=== PATIENT | female | born 1980 | race African-American/Black ===

== ENCOUNTER 2017-08-22 12:19 | Emergency (ER) ==
[2017-08-22 12:30] VITALS: BP 145/96; TEMP 99.6; BMI 36.0
[2017-08-22 13:11] LABS: BASOPHILS % (AUTO) 0.2 % (0.0-3.0); EOSINOPHILS % (AUTO) 0.5 % (0.0-7.0); HEMATOCRIT 34.3 % (37.0-47.0); HEMOGLOBIN 11.5 g/dl (12.0-16.0); IMMATURE GRANULOCYTE % (AUTO) 0.2 % (0.0-5.0); LYMPHOCYTES % (AUTO) 16.5 (10.0-50.0); MEAN CORPUSCULAR HEMOGLOBIN 28.3 pg (27.0-31.0); MEAN CORPUSCULAR HGB CONC 33.5 (31.8-35.4); MEAN CORPUSCULAR VOLUME 84.3 fl (81.0-99.0); MONOCYTES # (AUTO) 0.5 K/uL (0.4-2.0); MONOCYTES % (AUTO) 9.4 (0-10); NEUTROPHILS # (AUTO) 4.2 K/ul (2.0-6.9); NEUTROPHILS % (AUTO) 73.2; PLATELET COUNT 202 10^3/uL (140-440); RED BLOOD COUNT 4.07 10^6/ul (4.20-5.40); WHITE BLOOD COUNT 5.77 K/ul (4.6-10.2)
--- NOTE | 2017-08-22 13:31 | ED.PDOC ---
General ED Provider: Dr. ARA MARTINEZ Chief Complaint: Foot Pain/Injury Stated Complaint: R foot pain; worse this AM Time Seen by Physician: 12:45 Mode of Arrival: Wheelchair Information Source: Patient Exam Limitations: No limitations Primary Care [facility] Nursing and Triage Documentation Reviewed and Agree: Yes Review of Systems - Review Of Systems Constitutional: Reports: No symptoms Musculoskeletal: Reports: Other (F distal lateral foot pain) Skin: Reports: Change in color (Swelling and erythema R distal foot) All Other Systems: Reviewed and Negative Past Medical History - Past Medical History Previously Healthy: Yes Endocrine: Reports: None Cardiovascular: Reports: None Respiratory: Reports: None Hematological: Reports: None Gastrointestinal: Reports: None Genitourinary: Reports: None Neuro/Psych: Reports: None Musculoskeletal: Reports: None Cancer: Reports: None Last Menstrual Period: 08/19/17 - Surgical History General Surgical History: Reports: Unknown - Family History Family History: Reports: Unknown - Social History Smoking Status: Never smoker Hx Substance Use: No Alcohol Screening: None - Immunizations Tetanus Shot up to Date: (unknown) Physical Exam - Physical Exam Appearance: Well-appearing Pain Distress: Moderate (R foot) Neck: Supple Musculoskeletal: Normal strength, ROM intact Skin: Warm, Dry, Normal color (Except R distal lateral foot) Neurological: Sensation intact, Motor intact, Alert, Oriented Psychiatric: Affect appropriate, Mood appropriate Critical Care Note - Critical Care Note Total Time (mins): 15 Course - Course Hematology/Chemistry: 08/22/17 13:00 Orders, Labs, Meds: Lab Review 08/22/17 08/22/17 13:00 13:00 WBC 5.77 RBC 4.07 L Hgb 11.5 L Hct 34.3 L MCV 84.3 MCH 28.3 MCHC 33.5 RDW Coeff of Yudi 13.9 Plt Count 202 Immature Gran % (Auto) 0.2 Neut % (Auto) 73.2 Lymph % (Auto) 16.5 Day % (Auto) 9.4 Eos % (Auto) 0.5 Baso % (Auto) 0.2 Immature Gran # (Auto) 0.0 Neut # 4.2 Lymph # 1.0 Day # 0.5 Eos # 0.0 Baso # 0.0 Uric Acid 4.4 Orders Category Date Time Status CBC W/ AUTO DIFF Stat LAB 08/22/17 13:00 Completed URIC ACID Stat LAB 08/22/17 13:00 Completed FOOT, RIGHT 3 VIEWS Stat RADS 08/22/17 12:52 Completed ` Vital Signs: Temp Pulse Resp BP Pulse Ox 08/22/17 12:20 99.6 F 106 H 20 145/96 H 97 Departure - Departure Time of Disposition: 13:38 Disposition: HOME SELF-CARE Discharge Problem: Cellulitis Qualifiers: Site of cellulitis of extremity: toe Laterality: right Instructions: Cellulitis (ED) Condition: Good Pt referred to PMD for follow-up: Yes (Follow up; call for appointment) Additional Instructions: Take antibiotic as prescribed; stay off foot as much as possible. Use warm compresses (or may soak foot in very warm water) when able off and on. Prescriptions: Cephalexin [Keflex] 500 mg PO Q8HR #30 capsule Allergies/Adverse Reactions: Allergies morphine Allergy (Severe, Verified 08/22/17 12:27) Difficulty Breathing codeine Allergy (Intermediate, Verified 08/22/17 12:27) Vomiting Latex, Natural Rubber Allergy (Intermediate, Verified 08/22/17 12:27) Swelling Penicillins Allergy (Intermediate, Verified 08/22/17 12:27) Hives Home Medications: Ambulatory Orders Norethindrone-E.estradiol-Iron [Lo Loestrin Fe 1-10 Tablet] 1 each PO DAILY 05/17 Cephalexin [Keflex] 500 mg PO Q8HR #30 capsule 08/22/17 Disposition Discussed With: Patient (Patient advises that she has taken Keflex before with no allergy problems; understands plan; satisfied)
--- NOTE | 2017-08-22 13:33 | DI ---
EXAM: Right foot three views HISTORY: Pain distal lateral right foot COMPARISON: None FINDINGS: The bones are normal. The joints are normal. No focal soft tissue abnormality. IMPERSSION: Normal examination.
== END 2017-08-22 14:00 | disposition home or self-care (01) ==
LOC: ED 12:19
DX: L03.031 Cellulitis of right toe (principal)
CPT/HCPCS: 36415; 84550; 85025; 99282

== ENCOUNTER 2019-02-08 19:54 | Emergency (ER) | payer OTHER ==
[2019-02-08 20:05] VITALS: TEMP 98.9; BMI 39.6
--- NOTE | 2019-02-08 20:27 | DI ---
EXAM: Left foot, three-view. HISTORY: Left foot pain. Injury. COMPARISON: None. FINDINGS: AP, lateral and oblique views of the left foot. There are no acute or healing fractures. There are no lytic or blastic lesions. There is diffuse soft tissue swelling of the ankle. No disp laced fractures are seen. Bone mineralization is normal.No significant degenerative changes are seen . IMPRESSION: 1. No acute fractures. 2. Extensive soft tissue swelling.
--- NOTE | 2019-02-08 20:28 | DI ---
EXAM: Left foot, three-view. HISTORY: Left foot pain. Injury. COMPARISON: None. FINDINGS: AP, lateral and oblique views of the left foot. There are no acute or healing fractures. There are no lytic or blastic lesions. Diffuse soft tissue swelling is seen. Bone mineralization is normal.No significant degenerative changes are seen. IMPRESSION: 1. No acute fractures. 2. Soft tissue edema.
[2019-02-08] MEDS ORDERED: NORCO 5-325 PO STA (20:31)
--- NOTE | 2019-02-08 20:34 | ED.PDOC ---
General ED Provider: Dr. JEANNETTE NELSON-ER Chief Complaint: Ankle Pain/Injury Stated Complaint: i fell down some stairs this am and my ankle hurts Time Seen by Physician: 19:55 Mode of Arrival: Walk-In Information Source: Patient Exam Limitations: No limitations Primary Care Provider: HARINI POWERS Nursing and Triage Documentation Reviewed and Agree: Yes Does patient meet sepsis criteria?: No System Inflammatory Response Syndrome: Not Applicable Sepsis Protocol: For patient's 13 years and over: Temp is 96.8 and below OR 101 and greater Pulse >90 BPM Resp >20/minute Acutely Altered Mental Status Are patient's symptoms suggestive of a new infection, such as: -Pneumonia -Skin, Soft Tissue -Endocarditis -UTI -Bone, Joint Infection -Implantable Device -Acute Abdominal Infection -Wound Infection -Meningitis -Blood Stream Catheter Infection -Unknown Musculoskeletal Complaint Exam - Ankle/Foot Complaint/Exam Location of Injury: Reports: Left, Ankle, Foot Mechanism of Injury: Reports: Trauma Onset/Duration: 12 hrs Symptoms Are: Reports: Still present Onset of Pain: Reports: Immediate Initial Severity: Mild Current Severity: Mild Location: Reports: Discrete Character: Reports: Dull, Aching Aggravating: Reports: Movement, Weight bearing, Prolonged standing Able to Bear Weight: Yes Associated Signs and Symptoms: Reports: Swelling, Bruising Lower Extremity Findings: Present: Swelling, Ecchymosis, Tenderness, Limited range of motion Achilles Tendon Abnormality: No Tenderness: Present: Medial malleolus, Lateral malleolus, Midfoot, Metatarsals Limited Range of Motion: Present: Inversion, Eversion Differential Diagnosis: Closed Fracture Review of Systems - Review Of Systems Constitutional: Reports: No symptoms Eyes: Reports: No symptoms Ears, Nose, Mouth, Throat: Reports: No symptoms Respiratory: Reports: No symptoms Cardiac: Reports: No symptoms GI: Reports: No symptoms : Reports: No symptoms Musculoskeletal: Reports: Joint pain, Muscle pain Skin: Reports: No symptoms Neurological: Reports: No symptoms Endocrine: Reports: No symptoms Hematologic/Lymphatic: Reports: No symptoms All Other Systems: Reviewed and Negative Past Medical History - Past Medical History Previously Healthy: Yes Endocrine: Reports: None Cardiovascular: Reports: None Respiratory: Reports: None Hematological: Reports: None Gastrointestinal: Reports: None Genitourinary: Reports: None Neuro/Psych: Reports: None Musculoskeletal: Reports: None Cancer: Reports: None Last Menstrual Period: last week in december - Surgical History General Surgical History: Reports: Unknown - Family History Family History: Reports: Unknown - Social History Smoking Status: Never smoker Hx Substance Use: No Alcohol Screening: None - Immunizations Tetanus Shot up to Date: Yes Physical Exam - Physical Exam Appearance: Well-appearing, No pain distress, Well-nourished Pain Distress: Mild Eyes: ASHLEY, EOMI, Conjunctiva clear ENT: Ears normal, Nose normal, Oropharynx normal Neck: Supple Respiratory: Airway patent, Breath sounds clear, Breath sounds equal, Respirations nonlabored Cardiovascular: RRR, Pulses normal, No rub, No murmur GI/: Soft, Nontender, No masses, Bowel sounds normal, No Organomegaly Musculoskeletal: Limited ROM Skin: Warm, Dry, Normal color Neurological: Sensation intact, Motor intact, Reflexes intact, Cranial nerves intact, Alert, Oriented Psychiatric: Affect appropriate, Mood appropriate Interpretation - Radiology Interpretation Radiology Interpretation By: Radiologist Radiology Results: Negative Critical Care Note - Critical Care Note Total Time (mins): 0 Course - Course Orders, Labs, Meds: Orders Category Date Time Status CRUTCHES [ED CRUTCHES] .ONCE EMERGENCY 02/08/19 20:31 Active ED GINA WRAP .ONCE EMERGENCY 02/08/19 20:31 Active ED SPLINT APPLICATION .ONCE EMERGENCY 02/08/19 20:31 Active Hydrocodone Bit/Acetaminophen [[place] 5-325] MEDS 02/08/19 20:31 Stat 1 tab PO ONCE STA ANKLE, LEFT MIN 3 VIEWS Stat RADS 02/08/19 20:07 Completed FOOT, LEFT 3 VIEWS Stat RADS 02/08/19 20:07 Completed Medications Generic Name Dose Route Start Last Admin Trade Name Freq PRN Reason Stop Dose Admin Hydrocodone Bitart/Acetaminophen 1 tab 02/08/19 20:31 [place] 5-325 PO 02/08/19 20:32 ONCE STA Vital Signs: Temp Pulse Resp BP Pulse Ox 02/08/19 19:55 98.9 F 93 H 16 158/110 H 96 Departure - Departure Time of Disposition: 20:33 Disposition: HOME SELF-CARE Discharge Problem: Ankle pain Instructions: Ankle Sprain (DC), Ankle Stirrup Splint (ED) Condition: Good Pt referred to PMD for follow-up: Yes IPMP verified?: No Additional Instructions: stay in splint and crutches---norco 5mg q 4hrs prn pain #12---f/u with pcp Allergies/Adverse Reactions: Allergies morphine Allergy (Severe, Verified 02/08/19 20:04) Difficulty Breathing codeine Allergy (Intermediate, Verified 02/08/19 20:04) Vomiting Latex, Natural Rubber Allergy (Intermediate, Verified 02/08/19 20:04) Swelling Penicillins Allergy (Intermediate, Verified 02/08/19 20:04) Hives Home Medications: Ambulatory Orders 1 [No Reported Medications] 02/08/19 Disposition Discussed With: Patient
[2019-02-08] MEDS ORDERED: PROCARDIA XL PO STA (20:42)
[2019-02-08 21:22] VITALS: BP 138/87
== END 2019-02-08 21:25 | disposition home or self-care (01) ==
LOC: ED 19:54
DX: M25.572 Pain in left ankle and joints of left foot (principal); W10.9XXA Fall (on) (from) unspecified stairs and steps, initial encounter
CPT/HCPCS: 99283